=== PATIENT | female | born 1965 | race African-American/Black ===

== ENCOUNTER 2024-09-24 22:20 | Emergency (ER) | payer OTHER ==
[~2024-09-24] VITALS: Ht 167.6 cm; Wt 72.0 kg
[2024-09-24 22:21] VITALS: TEMP 36.8; O2SAT 99
[2024-09-24] MEDS: MAGNESIUM/ALUMINUM HYDROXIDE/SIMETHICONE 30ML UDC PO STA (23:17)
[2024-09-24] MEDS: METOCLOPRAMIDE HCL 10MG/2ML VIAL IM STA (23:17)
[2024-09-24] MEDS: DIPHENHYDRAMINE 50MG/ML VIAL IM ONE (23:17)
[2024-09-24] MEDS ORDERED: PROC-11 MT (23:32)
[2024-09-25 00:33] VITALS: BP 203/122; PULSE 75; RESP 12; O2SAT 100
== END 2024-09-25 00:40 | disposition home or self-care (01) ==
LOC: ER 22:20
DX: R11.2 Nausea with vomiting, unspecified (principal); Z88.2 Allergy status to sulfonamides
CPT/HCPCS: 99284; 96372; J1200; J2765

== ENCOUNTER 2025-05-03 04:00 | Emergency (ER) | payer OTHER, MEDICAID ==
[~2025-05-03] VITALS: Ht 160 cm; Wt 62.0 kg
[~2025-05-03 04:00] MED LIST: PROC-11 MT
[2025-05-03 04:01] VITALS: O2SAT 97
[2025-05-03 05:09] LABS: BASOPHILS % 0.5 % (0.0-2.0); EOSINOPHILS % 0.1 % (0.0-5.0); HEMATOCRIT. 46.2 % (36.0-48.0); HEMOGLOBIN. 14.6 g/dL (12.0-16.0); LYMPHOCYTES % 12.4 % (20.0-50.0); MEAN PLATELET VOLUME 9.0 fl (7.4-10.4); MONOCYTES % 5.3 % (2.0-8.0); NEUTROPHILS % 81.7 % (40.0-76.0); PLATELET 325 x1000/uL (130-400); RED BLOOD CELL COUNT 4.96 mill/uL (4.2-5.4); RED CELL DISTRIBUTION WIDTH 14.0 % (11.6-14.6)
[2025-05-03] MEDS: ONDANSETRON HCL 4MG/2ML INJ IV ONE (05:09)
[2025-05-03] MEDS: SODIUM CHLORIDE 0.9% 1,000 ML IV ONE (05:09)
[2025-05-03] MEDS: KETOROLAC 15MG/ML VIAL IV ONE (05:09)
[2025-05-03 05:28] LABS: CREATININE 0.9 mg/dL (0.6-1.0)
[2025-05-03 05:29] LABS: PROTEIN TOTAL 8.3 g/dL (6.0-8.3); UREA NITROGEN BLOOD 7 mg/dL (9-23)
[2025-05-03 05:30] LABS: ASPARTATE AMINOTRANSFERASE 58 IU/L (<34); TROPONIN I HIGH SENSITIVITY < 4 ng/L (3.0-34)
[2025-05-03 05:31] LABS: BILIRUBIN DIRECT 0.2 mg/dL (<=3.0); BILIRUBIN TOTAL 0.8 mg/dL (0.1-1.0)
[2025-05-03] MEDS: METOCLOPRAMIDE HCL 10MG/2ML VIAL IV ONE (05:55)
[2025-05-03 06:19] LABS: HCG SCREEN NEGATIVE
[2025-05-03 06:26] LABS: CLARITY URINE CLEAR (CLEAR); COLOR URINE YELLOW (YELLOW); GLUCOSE URINE 1+ (NEGATIVE); KETONES URINE 2+ (NEGATIVE); LEUKOCYTE ESTERASE URINE NEGATIVE (NEGATIVE); NITRITE URINE NEGATIVE (NEGATIVE); OCCULT BLOOD URINE NEGATIVE (NEGATIVE); PH URINE 8.0 (4.5-8.0); PROTEIN URINE TRACE (NEGATIVE); SPECIFIC GRAVITY URINE 1.015 (1.005-1.030); UROBILINOGEN URINE 0.2 E.U./dL (0.2-1.0)
[2025-05-03] MEDS: MORPHINE SULFATE 4 MG/ML INJ (FOR IV/IM USE) IV ONE (06:26)
[2025-05-03 07:34] LABS: SQUAMOUS EPITHELIAL CELL URINE 3+ /lpf (RARE/1+)
[2025-05-03 07:35] LABS: RBC URINE 0-2 /hpf (0-2); WBC URINE 0-2 /hpf (0-2)
[2025-05-03 07:37] LABS: BACTERIA URINE 1+
[2025-05-03] MEDS ORDERED: ZOLPIDEM TARTRATE 5MG TABLET PO PRN (08:15)
[2025-05-03] MEDS ORDERED: MAGNESIUM/ALUMINUM HYDROXIDE/SIMETHICONE 30ML UDC PO PRN (08:15)
[2025-05-03] MEDS ORDERED: ACETAMINOPHEN 325MG TABLET PO PRN (08:15)
[2025-05-03] MEDS ORDERED: HYDROCODONE/ACETAMINOPHEN 5/325MG TABLET PO PRN (08:15)
[2025-05-03] MEDS ORDERED: CLONIDINE 0.1MG TABLET PO PRN (08:15)
[2025-05-03] MEDS ORDERED: ONDANSETRON HCL 4MG/2ML INJ IV PRN (08:15)
[2025-05-03] MEDS ORDERED: MORPHINE SULFATE 2 MG/ML INJ (NOT FOR IM USE) IV PRN (08:15)
[2025-05-03] MEDS ORDERED: PIPERACILLIN/TAZO 3.375G/50ML 50 ML IV SCH ×2 (08:30→15:00)
[2025-05-03] MEDS ORDERED: NALOXONE HCL 0.4MG/ML VIAL IV PRN (08:30)
[2025-05-03 08:50] VITALS: BP 200/113; PULSE 99; RESP 18; TEMP 36.9; O2SAT 100
[2025-05-03] MEDS ORDERED: PANTOPRAZOLE SODIUM 40 MG/VIAL IV SCH (09:00)
[2025-05-03] MEDS ORDERED: SODIUM CHLORIDE 0.9% 1,000 ML IV SCH (09:00)
[2025-05-03] MEDS ORDERED: ENOXAPARIN 40MG/0.4ML SYR SUBCUT SCH (09:00)
[2025-05-03] MEDS ORDERED: VANCOMYCIN 1G PREMIX 200 ML IV SCH (09:00)
== END 2025-05-03 09:00 | disposition short-term general hospital (02) ==
LOC: ER 04:00 → CANBEDREQ 08:32 → ER 09:00
DX: R11.2 Nausea with vomiting, unspecified (principal); R10.84 Generalized abdominal pain; M54.50 Low back pain, unspecified; Z79.899 Other long term (current) drug therapy; Z88.2 Allergy status to sulfonamides
CPT/HCPCS: 99285; 96374; 96375; 96361; 80076; 80048; 81003; 84703; 83690; 83735; 85025; 84484; 36415; J1885; J2765; J2405; J2270; J7030